=== PATIENT | female | born 1995 | race African-American/Black ===

== ENCOUNTER 2019-10-27 13:44 | Inpatient (IN) ==
[2019-10-27 14:37] LABS: Bilirubin,Urine Negative (Negative); Blood,Urine Negative (Negative); Clarity,Urine Cloudy (Clear); Color,Urine Yellow (Yellow); Glucose,Urine (UA) Normal (Normal); Ketones,Urine Negative (Negative); Leukocyte Esterase,Urine Large (Negative); Nitrite,Urine Negative (Negative); PH,Urine 6.5 pH Units (5.0-8.0); Protein,Urine Negative (Neg-Trace); Specific Gravity,Urine 1.007 (1.010-1.025)
[2019-10-27 14:40] LABS: Bacteria,Urine Few per hpf (None-Few); Hyaline Casts,Urine None Seen per lpf (None-Few); RBC,Urine 0-3 per hpf (0-3); Squamous Epithelial Cell,Urine Many per lpf (None-Few); WBC,Urine 15-30 per hpf (0-3)
[2019-10-27] MEDS ORDERED: Metoclopramide 10 MG/2 ML VIAL IVP ONE (14:40)
[2019-10-27] MEDS ORDERED: Ringers Solution, Lactated 1,000 ML IVC ONE (14:40)
[2019-10-27] MEDS ORDERED: Famotidine 20 MG/2 ML VIAL IVP ONE (14:40)
[2019-10-27] MEDS ORDERED: Oxytocin 20 units/ LR 1000 mL 20 UNIT/1,000 ML BAG IVC ONE (14:40)
[2019-10-27] MEDS ORDERED: CeFAZolin Syr 3,000MG/30 ML 3,000 MG/30 ML SYRINGE IVPB ONE (14:40)
[2019-10-27] MEDS ORDERED: Oxytocin 20 units/ LR 1000 mL 20 UNIT/1,000 ML BAG IVC SCH ×3 (14:45→21:32)
[2019-10-27] MEDS ORDERED: Ringers Solution, Lactated 1,000 ML IVC SCH ×2 (14:45→21:32)
[2019-10-27 14:47] LABS: Amphetamine Screen,Urine Negative ng/mL (Cutoff=1000); Barbiturate Screen,Urine Negative ng/mL (Cutoff=200); Benzodiazepines Screen,Urine Negative ng/mL (Cutoff=200); Cannabinoid Screen,Urine Negative ng/mL (Cutoff = 50); Cocaine Screen,Urine Negative ng/mL (Cutoff= 300); Opiate Screen,Urine Negative ng/mL (Cutoff=300); Phencyclidine Screen,Urine Negative ng/mL (Cutoff=25)
[2019-10-27] MEDS ORDERED: 0.9 % Sodium Chloride 1,000 ML ONE (14:51)
[2019-10-27 15:13] LABS: Basophils % 0.5 %; Eosinophils % 0.5 %; Immature Granulocytes % 0.2 % (0-4)
[2019-10-27 15:15] LABS: Hematocrit 37.3 % (35.3-44.9); Hemoglobin 11.7 g/dL (11.5-15.4); Immature Platelets 11.1 % (1.1-6.1); Lymphocytes # 1.5 K/mcL (0.6-4.6); Lymphocytes % 22.6 %; Mean Corpuscular HGB Conc 31.4 g/dL (31.6-35.5); Mean Corpuscular Hemoglobin 22.9 pg (28.0-33.3); Mean Corpuscular Volume 72.9 fL (83.0-100.0); Monocytes # 0.4 K/mcL (0.0-1.3); Monocytes % 6.5 %; Neutrophils # 4.5 K/mcL (1.6-8.9); Platelet Count 201 K/mcL (140-400); Red Blood Count 5.12 M/mcL (3.82-4.97); Red Cell Distribution Width 17.1 % (11.5-14.5); Segmented Neutrophils % 69.7 %; White Blood Count 6.5 K/mcL (4.3-11.1)
[2019-10-27 15:45] LABS: Large Platelets Present (Not Present); Platelet Estimate Normal (Normal)
[2019-10-27 15:46] LABS: Anisocytosis 1+ (Not Present)
[2019-10-27 15:47] LABS: Hypochromasia Present (Not Present); Microcytosis Present (Not Present)
[2019-10-27] MEDS ORDERED: *HR* Morphine Sulfate/PF 10 MG/10 ML AMPUL ONE (17:01)
[2019-10-27] MEDS ORDERED: Dexamethasone 4 MG/ML VIAL ONE (17:02)
[2019-10-27] MEDS ORDERED: *HR* Oxytocin 10 UNIT/ML VIAL IM ONE (17:02)
[2019-10-27] MEDS ORDERED: Ondansetron 4 MG/2 ML VIAL ONE (17:02)
[2019-10-27] MEDS ORDERED: *HR* Propofol 200 MG/20 ML VIAL IVP ONE (17:45)
[2019-10-27] MEDS ORDERED: *HR* Succinylcholine 200 MG/10 ML VIAL IVP ONE (17:46)
[2019-10-27] MEDS ORDERED: *HR* FentaNYL (PF) 100 MCG/2 ML VIAL ONE (18:11)
[2019-10-27] MEDS ORDERED: *HR* HYDROMORPHONE 2 MG/ML VIAL ONE ×2 (18:21→18:27)
[2019-10-27] MEDS ORDERED: *HR* HYDROmorphone (PF) 1 MG/ML SYRINGE IVP PRN (18:25)
[2019-10-27] MEDS ORDERED: Ondansetron 4 MG/2 ML VIAL IVP PRN ×2 (18:25→21:32)
[2019-10-27] MEDS ORDERED: Acetaminophen IV 1,000 MG/100 ML INFUS..BTL IVPB ONE (18:25)
[2019-10-27] MEDS ORDERED: *HR* OxyCODONE Immed Rel 5 MG TABLET PO PRN (18:25)
[2019-10-27] MEDS ORDERED: *HR* Promethazine 25 MG/ML VIAL IVP PRN (18:25)
[2019-10-27] MEDS ORDERED: Ringers Solution, Lactated 1,000 ML ONE (18:30)
[2019-10-27] MEDS ORDERED: Lidocaine -MPF 2% 5 ML VIAL ONE (18:30)
[2019-10-27] MEDS ORDERED: *HR* HYDROmorphone 20 MG/20 ML PCA IVC PRN (21:32)
[2019-10-27] MEDS ORDERED: Simethicone 80 MG TAB.CHEW PO PRN (21:32)
[2019-10-27] MEDS ORDERED: Sennosides 8.6 MG TABLET PO PRN (21:32)
[2019-10-27] MEDS ORDERED: Metoclopramide 10 MG/2 ML VIAL IVP PRN (21:32)
[2019-10-27] MEDS ORDERED: Rho Immune Globulin 1,500 UNIT SYRINGE IM ONE (21:32)
[2019-10-28] MEDS: *HR* OxyCODONE Immed Rel 5 MG TABLET PO PRN ×3 (02:38→23:46)
[2019-10-28 05:51] LABS: Basophils % 0.2 %; Immature Granulocytes % 0.3 % (0-4); Red Cell Distribution Width 16.8 % (11.5-14.5)
[2019-10-28 05:53] LABS: Hematocrit 27.8 % (35.3-44.9); Hemoglobin 8.7 g/dL (11.5-15.4); Immature Platelets 9.2 % (1.1-6.1); Lymphocytes # 1.1 K/mcL (0.6-4.6); Lymphocytes % 8.4 %; Mean Corpuscular HGB Conc 31.3 g/dL (31.6-35.5); Mean Corpuscular Hemoglobin 23.4 pg (28.0-33.3); Mean Corpuscular Volume 74.7 fL (83.0-100.0); Monocytes # 0.9 K/mcL (0.0-1.3); Monocytes % 7.2 %; Neutrophils # 10.7 K/mcL (1.6-8.9); Platelet Count 201 K/mcL (140-400); Red Blood Count 3.72 M/mcL (3.82-4.97); Segmented Neutrophils % 83.9 %; White Blood Count 12.8 K/mcL (4.3-11.1)
[2019-10-28] MEDS: Acetaminophen 325 MG TABLET PO PRN ×2 (06:45→12:40)
[2019-10-28] MEDS: Prenatal Vit/FA 1 EACH TABLET PO SCH (08:26)
[2019-10-28] MEDS: Ibuprofen 600 MG TABLET PO PRN ×2 (12:39→19:54)
[2019-10-29] MEDS: Prenatal Vit/FA 1 EACH TABLET PO SCH (08:53)
[2019-10-29] MEDS: Ondansetron ODT 4 MG TAB.RAPDIS SL PRN (08:53)
[2019-10-29] MEDS: *HR* OxyCODONE Immed Rel 5 MG TABLET PO PRN ×2 (08:53→17:56)
[2019-10-29] MEDS: Acetaminophen 325 MG TABLET PO PRN (17:56)
[2019-10-30] MEDS: Ondansetron ODT 4 MG TAB.RAPDIS SL PRN (03:16)
[2019-10-30] MEDS: Ibuprofen 600 MG TABLET PO PRN (03:16)
[2019-10-30] MEDS: *HR* OxyCODONE Immed Rel 5 MG TABLET PO PRN (03:16)
[2019-10-30] MEDS: Prenatal Vit/FA 1 EACH TABLET PO SCH (08:02)
[2019-10-30 08:10] VITALS: BP 120/82
== END 2019-10-30 17:45 | disposition home or self-care (01) | DRG 540 ==
LOC: 1NENULAB → OBSVTOIN 13:44 → 1NENUOBS 21:14
PROVIDERS: ADMIT Advanced Practice Midwife; ATTEND Advanced Practice Midwife

== ENCOUNTER → 2021-11-06 15:37 | Observation (INO) ==
[2021-11-06 13:49] LABS: Bacteria,Urine Few per hpf (None-Few); Bilirubin,Urine Negative (Negative); Blood,Urine Moderate (Negative); Clarity,Urine Turbid (Clear); Color,Urine Yellow (Yellow); Glucose,Urine (UA) Normal (Normal); Ketones,Urine Negative (Negative); Leukocyte Esterase,Urine Small (Negative); Mucus,Urine Few per lpf (None-Few); Nitrite,Urine Negative (Negative); Protein,Urine Trace mg/dL (Neg-Trace); RBC,Urine TNTC per hpf (0-3); Specific Gravity,Urine 1.019 (1.010-1.025); Squamous Epithelial Cell,Urine Few per hpf (None-Few); Urobilinogen,Urine >=8.0 mg/dL (Normal); WBC,Urine 15-30 per hpf (0-3)
[2021-11-06 17:53] LABS: Candida DNA Not Detected (Not Detect); Gardnerella DNA DETECTED (Not Detect); Trichomonas DNA Not Detected (Not Detect)
== END | disposition home or self-care (01) ==
LOC: 1NENULAB
PROVIDERS: ADMIT Obstetrics & Gynecology; ATTEND Obstetrics & Gynecology

== ENCOUNTER 2022-02-03 09:29 | Inpatient (IN) ==
[2022-02-03] MEDS ORDERED: Metoclopramide 10 MG/2 ML VIAL IVP ONE (10:08)
[2022-02-03] MEDS ORDERED: CeFAZolin Syr 3,000MG/30 ML 3,000 MG/30 ML SYRINGE IVPB ONE (10:08)
[2022-02-03] MEDS ORDERED: Famotidine 20 MG/2 ML VIAL IVP ONE (10:08)
[2022-02-03] MEDS ORDERED: *HR* HYDROmorphone PF 0.5 MG/0.5 ML SYRINGE IVP PRN (10:09)
[2022-02-03] MEDS ORDERED: Promethazine 6.25 MG in Water for inj. (sterile) 20 ML IVPB PRN (10:09)
[2022-02-03] MEDS ORDERED: Ondansetron 4 MG/2 ML VIAL IVP PRN ×2 (10:09→18:45)
[2022-02-03] MEDS ORDERED: Ringers Solution, Lactated 1,000 ML IVC SCH ×2 (10:15→18:45)
[2022-02-03 10:41] LABS: Amphetamine Screen,Urine Negative ng/mL (Cutoff=1000); Barbiturate Screen,Urine Negative ng/mL (Cutoff=200); Benzodiazepines Screen,Urine Negative ng/mL (Cutoff=200); Cannabinoid Screen,Urine Negative ng/mL (Cutoff = 50); Cocaine Screen,Urine Negative ng/mL (Cutoff= 300); Opiate Screen,Urine Negative ng/mL (Cutoff=300); Phencyclidine Screen,Urine Negative ng/mL (Cutoff=25)
[2022-02-03 10:56] LABS: Red Cell Distribution Width 18.6 % (11.5-14.5)
[2022-02-03 10:58] LABS: Hematocrit 35.7 % (35.3-44.9); Hemoglobin 10.5 g/dL (11.5-15.4); Immature Platelets 8.5 % (1.1-6.1); Mean Corpuscular HGB Conc 29.4 g/dL (31.6-35.5); Mean Corpuscular Hemoglobin 20.4 pg (28.0-33.3); Mean Corpuscular Volume 69.5 fL (83.0-100.0); Platelet Count 310 K/mcL (140-400); Red Blood Count 5.14 M/mcL (3.82-4.97); White Blood Count 7.1 K/mcL (4.3-11.1)
[2022-02-03] MEDS ORDERED: *HR* Morphine Sulfate/PF 10 MG/10 ML AMPUL ONE (11:03)
[2022-02-03] MEDS ORDERED: EPHEDrine 50 MG/ML VIAL ONE (11:03)
[2022-02-03] MEDS ORDERED: *HR* FentaNYL (PF) 100 MCG/2 ML VIAL ONE (11:03)
[2022-02-03] MEDS ORDERED: Ketorolac 30 MG/ML VIAL ONE (11:03)
[2022-02-03] MEDS ORDERED: Ondansetron 4 MG/2 ML VIAL ONE (11:03)
[2022-02-03] MEDS ORDERED: Acetaminophen IV 1,000 MG/100 ML BAG IVPB ONE (11:04)
[2022-02-03 11:51] LABS: Basophils # 0.3 K/mcL (0.0-0.2); Eosinophils # 0.1 K/mcL (0.0-0.6); Lymphocytes # 1.1 K/mcL (0.6-4.6); Monocytes # 0.3 K/mcL (0.0-1.3)
[2022-02-03 11:52] LABS: Neutrophils # 5.3 K/mcL (1.6-8.9)
[2022-02-03 12:04] LABS: Anisocytosis 1+ (Not Present); Hypochromasia Present (Not Present); Platelet Estimate Normal (Normal); Poikilocytosis 1+ (Not Present); Polychromasia 1+ (Not Present)
[2022-02-03] MEDS ORDERED: Ringers Solution, Lactated 1,000 ML ONE (14:47)
[2022-02-03] MEDS ORDERED: 0.9 % Sodium Chloride 1,000 ML ONE (15:10)
[2022-02-03] MEDS ORDERED: Lidocaine -MPF 2% 5 ML VIAL ONE (15:23)
[2022-02-03] MEDS ORDERED: Ringers Solution, Lactated 2,000 ML ONE (15:40)
[2022-02-03] MEDS ORDERED: *HR* Vasopressin 20 UNIT/ML VIAL ONE (15:49)
[2022-02-03] MEDS: Oxytocin 30 UNIT/503 ML BAG IVC SCH (17:22)
[2022-02-03] MEDS ORDERED: Metoclopramide 10 MG/2 ML VIAL IVP PRN (18:45)
[2022-02-03] MEDS ORDERED: *HR* OxyCODONE Immed Rel 5 MG TABLET PO PRN (18:45)
[2022-02-03] MEDS ORDERED: OXYTOCIN/RINGERS LACTATE 10 UNIT/166.6 ML BAG IVC ONE (18:45)
[2022-02-03] MEDS ORDERED: Rho Immune Globulin 1,500 UNIT SYRINGE IM ONE (18:45)
[2022-02-03] MEDS ORDERED: Simethicone 80 MG TAB.CHEW PO PRN (18:45)
[2022-02-03] MEDS ORDERED: *HR* Nalbuphine 10 MG/ML AMPUL IV SCH (18:50)
[2022-02-03] MEDS ORDERED: Oxytocin 30 UNIT/503 ML BAG IVC SCH (19:30)
[2022-02-03] MEDS: Ibuprofen 600 MG TABLET PO SCH (20:37)
[2022-02-03] MEDS: Acetaminophen 325 MG TABLET PO SCH (20:37)
[2022-02-03] MEDS ORDERED: NON-FORMULARY MEDICATION 1 EACH EACH (Ferrous Sulfate 1 TAB) PO SCH (21:00)
[2022-02-04] MEDS: Ibuprofen 600 MG TABLET PO SCH ×4 (02:41→21:40)
[2022-02-04] MEDS: Acetaminophen 325 MG TABLET PO SCH ×4 (02:42→21:40)
[2022-02-04 03:39] LABS: Immature Granulocytes % 0.3 % (0-4)
[2022-02-04 03:41] LABS: Basophils % 0.2 %; Hematocrit 29.7 % (35.3-44.9); Hemoglobin 8.6 g/dL (11.5-15.4); Immature Platelets 7.8 % (1.1-6.1); Lymphocytes # 0.9 K/mcL (0.6-4.6); Lymphocytes % 7.6 %; Mean Corpuscular Hemoglobin 20.4 pg (28.0-33.3); Mean Corpuscular Volume 70.4 fL (83.0-100.0); Monocytes # 0.7 K/mcL (0.0-1.3); Monocytes % 5.6 %; Neutrophils # 10.2 K/mcL (1.6-8.9); Platelet Count 260 K/mcL (140-400); Red Blood Count 4.22 M/mcL (3.82-4.97); Segmented Neutrophils % 86.3 %; White Blood Count 11.8 K/mcL (4.3-11.1)
[2022-02-04] MEDS: *HR* Enoxaparin 60 MG/0.6 ML SYRINGE SQ SCH ×2 (06:34→18:06)
[2022-02-04] MEDS ORDERED: NON-FORMULARY MEDICATION 1 EACH EACH (Prenat 115/Iron Fum/Folic/Dss [Prenatal 19 Tablet] 1 PO SCH (09:00)
[2022-02-04] MEDS: Prenatal Vit/FA 1 EACH TABLET PO SCH (09:21)
[2022-02-04] MEDS: hydrOXYzine pamoate 25 MG CAPSULE PO PRN ×2 (09:28→15:46)
[2022-02-05] MEDS: Ibuprofen 600 MG TABLET PO SCH ×2 (03:03→08:47)
[2022-02-05] MEDS: Acetaminophen 325 MG TABLET PO SCH ×2 (03:03→08:47)
[2022-02-05] MEDS: *HR* Enoxaparin 60 MG/0.6 ML SYRINGE SQ SCH (05:42)
[2022-02-05] MEDS: Prenatal Vit/FA 1 EACH TABLET PO SCH (08:47)
[2022-02-05 09:15] VITALS: BP 122/75; PULSE 83; TEMP 98.1; O2SAT 99
== END 2022-02-05 14:00 | disposition home or self-care (01) | DRG 539 ==
LOC: 1NENULAB 09:29 → 1NENUOBS 18:44
PROVIDERS: ADMIT Student in an Organized Health Care Education/Training Program; ATTEND Student in an Organized Health Care Education/Training Program